=== PATIENT | female | born 1990 | race Caucasian/White ===

== ENCOUNTER 2024-02-26 14:31 | Outpatient (CLI) | payer OTHER, SELFPAY ==
[2024-03-02 12:18] LABS: NIL 0.05 IU/mL; Quantiferon TB Plus, 1T NEGATIVE (NEGATIVE); TB1-NIL 0.11 IU/mL; TB2-NIL 0.09 IU/mL
== END 2024-02-26 14:32 | disposition home or self-care (01) ==
PROVIDERS: PCP Family Medicine
DX: L40.0 Psoriasis vulgaris (principal)
CPT/HCPCS: 36415; 86480

== ENCOUNTER 2024-08-05 09:54 | Outpatient (CLI) | payer OTHER, SELFPAY ==
--- NOTE | ~2024-08-05 | XR_ITS ---
EXAMINATION: XR lumbar spine 2-3V DATE: 08/05/2024 10:31 INDICATION: Low back pain. TECHNIQUE: 3 views of lumbar spine were obtained. COMPARISON: None. FINDINGS: Alignment is normal. Vertebral body heights are normal. Intervertebral disc heights are nor mal. There is multilevel mild facet joint osteoarthritis in lumbar spine. IMPRESSION: 1. Mild lumbar facet joint osteoarthritis. Reviewed, dictated and finalized at location A.
== END 2024-08-05 09:55 | disposition home or self-care (01) ==
LOC: MICIMG 09:55
PROVIDERS: PCP Family Medicine
DX: M51.369 Other intervertebral disc degeneration, lumbar region without mention of lumbar back pain or lower extremity pain (principal)
CPT/HCPCS: 72100

== ENCOUNTER 2025-01-05 13:36 | Outpatient (RCR) | payer OTHER, SELFPAY ==
--- NOTE | 2025-01-05 14:49 | OPREHPOC ---
Outpatient Therapy Plan of Care This is a Multidisciplinary Plan of Care that may contain components documented by all disciplines (PT, OT, and ST.) PT Problem 1 PT Problem #1 Knowledge Deficit PT Goal 1 Goal / Goal Update independent and compliant with HEP Target Visit 4 PT Problem 2 PT Problem #2 Pain PT Goal 1 Goal / Goal Update 1. no pain in the L buttock/lower back Target Visit 8 PT Problem 3 PT Problem #3 Impaired Range of Motion PT Goal 1 Goal / Goal Update 1. 100% arom lumbar mobility PT Problem 4 PT Problem #4 Impaired Strength PT Goal 1 Goal / Goal Update 1. patient to complete 5 full sit-ups 2. patient to complete bridge to neutral hip posture 3. patient will display 5/5 bilateral hip strength Target Visit 8 PT Problem 5 PT Problem #5 Impaired Functional Mobility PT Goal 1 Goal / Goal Update 1. oswestry to display 10% or less functional deficits 2. patient to perform deadlift safely with no pain with 40lbs total weight to improve functional activities 3. patient to complete 45 minutes of continued exercise without increased pain Target Visit 8
--- NOTE | 2025-01-05 14:49 | PTOPEVAL1 ---
Assessment and note entered by JT File, PT Evaluation Information Assessment Status Evaluation ICD-10 Condition Codes (PT) Pain in low back M54.50,Radiculopathy, lumbar region M54.16 Onset 12/26/24 Subjective Information patient reports she is not sure what is going on, but about a week or 2 ago, her back started getting stiff midway through the day. later that day she was unable to walk due to pain. she reports she is assuming it is sciatic pain as she has had this in the past. she reports she got a steroid and [facility] relaxer [facility], and reports it has helped to allow her to start stretching and exercises. she reports she has increased pain with going from sitting to standing and ending forward . she reports she is now able to twist/turn a little which she was unable to do last week. she reports the shooting pain she gets when she moves wrong stays in the sacrum area, but in general her whole L thigh feels numb. Reported Pain Level Pain Score 1: Self Report Assessment PT Clinical Summary mrs. tubbs is a pleasant 34 yo woman who presents to skilled PT services for evaluation and treatment of lower back and L LE pain. she displays signs and symptoms of L sciatica and core weakness. given her positive lumbar signs lumbar radiculopathy cannot yet be ruled out. she displays decreased lumbar rom, decreased core strength, bilateral hip weakness, and pain at rest and with activity. she would benefit from continued skilled PT services to improve her objective/functional deficits and progress towards a return to her prior level functional activity performance/quality of life. Plan of Care Interventions Electrical Stimulation,Gait Training,Hot Pack/Cold Pack,Manual Therapy,Neuro Re-education,Patient/ Caregiver Education,Therapeutic Activities, Therapeutic Exercise PT Services Indicated Yes Treatment Frequency and 2x weekly for 8 visits Duration These treatments will address the objective and functional deficits as defined above. The patient will be advanced safely and appropriately in order for the patient to progress towards his/her prior level of function. Additional exercises will be introduced and as well as a comprehensive home exercise program upon discharge, if needed, ?to ensure carryover of functional gains achieved in the clinic. This treatment plan has been reviewed and agreement upon by the patient.
--- NOTE | 2025-01-28 09:40 | OPREHPOC ---
Outpatient Therapy Plan of Care This is a Multidisciplinary Plan of Care that may contain components documented by all disciplines (PT, OT, and ST.) PT Problem 1 PT Problem #1 Knowledge Deficit PT Goal 1 Goal / Goal Update independent and compliant with HEP Target Visit 4 Progress Met PT Problem 2 PT Problem #2 Pain PT Goal 1 Goal / Goal Update 1. no pain in the L buttock/lower back Target Visit 12 Progress Not Met PT Problem 3 PT Problem #3 Impaired Range of Motion PT Goal 1 Goal / Goal Update 1. 100% arom lumbar mobility Target Visit 12 PT Problem 4 PT Problem #4 Impaired Strength PT Goal 1 Goal / Goal Update 1. patient to complete 5 full sit-ups 2. patient to complete bridge to neutral hip posture. met 3. patient will display 5/5 bilateral hip strength . not met Target Visit 12 Progress Partially Met PT Problem 5 PT Problem #5 Impaired Functional Mobility PT Goal 1 Goal / Goal Update 1. oswestry to display 10% or less functional deficits 2. patient to perform deadlift safely with no pain with 40lbs total weight to improve functional activities 3. patient to complete 45 minutes of continued exercise without increased pain Target Visit 12 Progress Not Met
--- NOTE | 2025-01-28 09:40 | PTOPREEVAL ---
Assessment and note entered by JT File, PT Evaluation Information Assessment Status Re-evaluation ICD-10 Condition Codes (PT) Pain in low back M54.50,Radiculopathy, lumbar region M54.16 Onset 12/26/24 Subjective Information patient reports she feels a little stiff today, but overall feel better since beginning therapy. she reports her rom is better, but she is still sleeping on the couch due to pain in the lower back when waking up from sleeping in her bed. she reports friday she cleans the house and she is then hurting that night and next morning. she reports she gets a little bit of tenderness along the side of both thighs. she reports feeling 80% back to normal today. Reported Pain Level Pain Score 4: Self Report Assessment PT Clinical Summary mrs. tubbs presents to skilled PT services with decreased pain overall, improve strength, and improved rom. she lacks achievement of all goals for skilled PT, but has met or partially met several goals. she would benefit from continued skilled PT to address her remaining objective/ functional deficits to achieve her full goals and return to full prior level functional activity performance/quality of life. Plan of Care Interventions Electrical Stimulation,Gait Training,Hot Pack/Cold Pack,Manual Therapy,Neuro Re-education,Patient/ Caregiver Education,Therapeutic Activities, Therapeutic Exercise PT Services Indicated Yes Treatment Frequency and continue skilled PT 2x weekly for 4 more visits Duration These treatments will address the objective and functional deficits as defined above. The patient will be advanced safely and appropriately in order for the patient to progress towards his/her prior level of function. Additional exercises will be introduced and as well as a comprehensive home exercise program upon discharge, if needed, ?to ensure carryover of functional gains achieved in the clinic. This treatment plan has been reviewed and agreement upon by the patient.
== END 2025-04-05 23:59 | disposition home or self-care (01) ==
LOC: CHSPT 13:36
PROVIDERS: Visit Provider Nurse Practitioner Family
DX: M54.9 Dorsalgia, unspecified (principal)
CPT/HCPCS: 97014; 97110; 97112; 97140; 97161; G0283